=== PATIENT | female | born 1985 | race Hispanic/Latino ===

== ENCOUNTER 2017-02-28 18:36 | Emergency (ER) | payer SELFPAY ==
[2017-02-28] MEDS ORDERED: Acetaminophen 500 MG TAB ONE (18:44)
== END 2017-02-28 18:55 | disposition home or self-care (01) ==
LOC: NAV ERS 18:36
DX: J11.1 Influenza due to unidentified influenza virus with other respiratory manifestations (principal)
CPT/HCPCS: 99283